=== PATIENT | female | born 1960 | race Caucasian/White ===

== ENCOUNTER 2023-07-06 09:47 | Outpatient (CLI) | payer OTHER, SELFPAY ==
--- NOTE | 2023-07-06 10:04 | MM_ITS ---
WS: [id number] BILATERAL SCREENING DIGITAL TOMOSYNTHESIS MAMMOGRAM WITH CAD HISTORY: SCREENING COMPARISON: None available. Bilateral CC and MLO views with tomosynthesis and synthetic mammography submitted. Computer aided det ection analyzed. Breast composition: The breasts are almost entirely fatty. No suspicious masses, microcalcifications or architectural distortion. IMPRESSION: MM/[place] [id number] BI-RADS: 1-Negative FOLLOW UP: 1 Year Follow-up
== END 2023-07-06 09:48 | disposition home or self-care (01) ==
LOC: RAD 09:53
PROVIDERS: PCP Nurse Practitioner; Visit Provider Nurse Practitioner
DX: Z12.31 Encounter for screening mammogram for malignant neoplasm of breast (principal)
CPT/HCPCS: 77063; 77067

== ENCOUNTER → 2023-09-28 08:41 | Outpatient (BNVA) | payer OTHER, SELFPAY | PROVIDERS: PCP Nurse Practitioner; Visit Provider Family Medicine Adult Medicine | DX: Z56.6 Other physical and mental strain related to work (principal); I10 Essential (primary) hypertension; E78.5 Hyperlipidemia, unspecified | CPT/HCPCS: 80053; 80061; 84443; 85025 ==

== ENCOUNTER 2024-08-21 07:26 | Outpatient (CLI) | payer OTHER, SELFPAY ==
--- NOTE | 2024-08-21 07:34 | MM_ITS ---
WS: [id number] BILATERAL SCREENING DIGITAL TOMOSYNTHESIS MAMMOGRAM WITH CAD HISTORY: SCREENING COMPARISON: 07/06/2023 Bilateral CC and MLO views with tomosynthesis and synthetic mammography submitted. Computer aided det ection analyzed. Breast composition: The breasts are almost entirely fatty. No suspicious masses, microcalcifications or architectural distortion. Bilateral intramammary lymph nodes. MM/MM scr BI tomosynthesis [id number] IMPRESSION: BI-RADS: 2 - Benign. FOLLOW UP: 1 Year Follow-up
== END 2024-08-21 07:27 | disposition home or self-care (01) ==
PROVIDERS: PCP Family Medicine Adult Medicine; Visit Provider Family Medicine Adult Medicine
DX: Z12.31 Encounter for screening mammogram for malignant neoplasm of breast (principal); R92.313 Mammographic fatty tissue density, bilateral breasts
CPT/HCPCS: 77063; 77067

== ENCOUNTER → 2024-12-17 07:42 | Outpatient (BNVA) | payer BC, SELFPAY | PROVIDERS: PCP Family Medicine; Visit Provider Family Medicine | DX: Z00.00 Encounter for general adult medical examination without abnormal findings (principal) | CPT/HCPCS: 80053; 80061; 84443; 85025 ==

== ENCOUNTER → 2025-05-10 10:19 | Outpatient (BNVA) | payer OTHER, SELFPAY | PROVIDERS: PCP Family Medicine; Visit Provider Emergency Medicine | DX: R39.9 Unspecified symptoms and signs involving the genitourinary system (principal) | CPT/HCPCS: 81000 ==

== ENCOUNTER 2025-05-19 17:07 | Emergency (ER) | payer OTHER, SELFPAY ==
[2025-05-19 17:15] VITALS: BP 157/100; PULSE 68; RESP 16; TEMP 36.3; O2SAT 97
--- NOTE | 2025-05-19 17:18 | ECG_ITS ---
[facility] Date: 2025-05-19 Pat Name: Emma Mccloud Department: Room: Gender: Female Night Custodian: : 1960 Requested By: Ran Mclean Order Number: [id number] Rip MD: Deborah Mueller M.D. Measurements Intervals [place] Rate: 70 P: 47 [place]: 168 QRS: -7 QRSD: 81 T: 53 QT: 381 QTc: 413 Interpretive Statements SINUS RHYTHM POSSIBLE LEFT ATRIAL ENLARGEMENT [-0.1mV P-WAVE IN V1/V2] No previous ECG available for comparison Electronically Signed On 05-19-2025 22:57:13 CDT by Deborah Mueller M.D. [email or web address]
--- NOTE | 2025-05-19 17:26 | XRR_ITS ---
PROCEDURE INFORMATION: Exam: XR Chest Exam date and time: 05/19/2025 5:29 PM Age: 65 years old Clinical indication: Shortness of breath; Additional info: Dyspnea/cough TECHNIQUE: Imaging protocol: Radiologic exam of the chest. Views: 1 view. COMPARISON: No relevant prior studies available. FINDINGS: Lungs: Small amount of left lower lung atelectasis. No pulmonary infiltrates. Pleural spaces: The pleural spaces are clear. Heart/Mediastinum: The cardiac silhouette is mildly enlarged. Mediastinal size is normal. Bones/joints: Unremarkable. XR/XR chest 1V portable [id number] IMPRESSION: 1. No acute disease in the chest. 2. Borderline cardiomegaly.
[2025-05-19 18:02] LABS: Hematocrit 46.7 % (36-47); Hemoglobin 15.20 g/dL (11.27-16.99); Mean Corpuscular HGB Conc 32.5 g/dL (30-55); Mean Corpuscular Hemoglobin 29.1 pg (27-33); Mean Corpuscular Volume 89.5 fl (85-98); Nucleated Red Blood Cells % 0 %; Platelet Count 308 10^3/cmm (157-399); Red Blood Count 5.22 10^6/uL (3.85-5.65); White Blood Count 7.34 10^3/uL (3.29-11.43)
[2025-05-19 18:04] LABS: ABG PCO2 33.4 mmHg (35-45); ABG PH Result 7.44 (7.35-7.45); Alveolar-Arterial Oxygen Gradi 4.8 mmHg (5-10); Arterial Blood Gas Hematocrit 48.5 % (37-47); Blood Gas Operator Identificat GD; Blood Gas Sample Site Brachial, right; Blood Gas Sample Type Arterial; Carboxyhemoglobin 0.2 %THgb (0.4-20.1); Glucose Level-ABG 100.0 mg/dL (70-115); HCO3 ABG 22.7 mmol/L (22-26); Ionized Calcium Level - ABG 1.3 mmol/L (1.1-1.4); Methemoglobin 0.0 % (0.4-1.5); Oxygen Saturation ABG 94.0; PO2 ABG 71.5 mmHg (80.0-100.0); PO2 FiO2 Ratio Arterial Blood 340; Potassium Level - ABG 4.0 mmol/L (3.5-5.0); Sodium Level - ABG 142.0 mmol/L (131-143)
--- NOTE | 2025-05-19 18:16 | CTR_ITS ---
PROCEDURE INFORMATION: Exam: CTA Chest With Contrast Exam date and time: 05/19/2025 8:05 PM Age: 65 years old Clinical indication: Shortness of breath; Additional info: Dyspnea on exertion TECHNIQUE: Imaging protocol: Computed tomographic angiography of the chest with contrast. Exam focused on the arteries. 3D rendering (Not supervised by radiologist): MIP and/or 3D reconstructed images were created by the technologist. Radiation optimization: All CT scans at this facility use at least one of these dose optimization techniques: automated exposure control; mA and/or kV adjustment per patient size (includes targeted exams where dose is matched to clinical indication); or iterative reconstruction. Contrast material: OMNIPAQUE 350; Contrast volume: 100 ml; Contrast route: INTRAVENOUS (IV); COMPARISON: CR (CHEST, ) 05/19/2025 5:29 PM RADIATION DOSE METRICS: Total DLP (mGy-cm): 454.91 FINDINGS: Pulmonary arteries: There are bilateral segmental and subsegmental pulmonary emboli with lobar emboli on the right. There is a thin saddle embolus. Large clot burden. Aorta: There is mild aortic atherosclerotic disease. Lungs: There is no consolidation. There is a noncalcified pulmonary nodule in the left lower lobe visible on series 7, image 268 measuring 3 mm. Pleural spaces: There is no pleural effusion or pneumothorax. Heart: Heart size is normal. There is no pericardial effusion. Heart RV/LV ratio: 1.0 Lymph nodes: There is no mediastinal or hilar lymphadenopathy. Liver: There is diffuse low-attenuation of the liver relative to the spleen consistent with fatty infiltration. Bones/joints: Bones are unremarkable. Soft tissues: The extrathoracic soft tissues are unremarkable. CT/CT angio chest PE protcl [id number] IMPRESSION: 1. Bilateral pulmonary embolism. Large clot burden. Saddle embolism is present. No sign of right ventricular strain. 2. Hepatic steatosis. 3. 3 mm left lower lobe pulmonary nodule. For patients at low risk (minimal or absent history of smoking and of other known risk factors), no routine follow-up is indicated. For patients at high risk (history of smoking or of other known risk factors), consider optional CT Chest at 12 months. (Reference: Agapito) REFERENCES: Agapito Hernandez et al. Guidelines for Management of Incidental Pulmonary Nodules Detected on CT Images: From the Fleischner Society 2017. Radiology. 2017;284(1):228-243.
--- NOTE | 2025-05-19 18:16 | W.ED.SOB ---
Documented by User: Ran Ham, 05/20/25 05:44 HPI - SOB/Dyspnea General: Chief Complaint: Shortness of Breath/Dyspnea Stated Complaint: SOB Time Seen by Provider: 05/19/25 17:25 History of Present Illness: HPI Narrative: 62-year-old female presents emergency room complaining of shortness of breath. Patient has been short of breath for the last 2 weeks. She reports on April 16 she started a GLP-1. Shortly after that she began having shortness of breath she has gotten the point where she cannot walk more than 20 feet without getting uncomfortably short of breath. She has not had any orthopnea no hemoptysis. She was recently treated for a bladder infection has not had any productive cough or wheezing. No history of DVT or PE there is no accompanying chest pain diaphoresis or nausea. Associated symptoms: Deny abdominal pain, chest congestion, chest pain or fever(s) Related Data Home Medications ?Medication ?Instructions ?Recorded ?Confirmed magnesium 250 mg tablet 250 mg PO DAILY 09/28/23 05/10/25 melatonin 3 mg capsule 3 mg PO DAILY 09/28/23 05/10/25 Previous Rx's ?Medication ?Instructions ?Recorded cetirizine 10 mg tablet (All Day 10 mg PO DAILY PRN allergy 09/29/23 Allergy (cetirizine)) symptoms #90 tabs Miguel's wort 300 mg capsule 300 mg PO BID mental health #60 10/26/23 caps cyclobenzaprine 5 mg tablet 5 mg PO TID PRN muscle spasm #20 08/12/24 tabs losartan 50 mg tablet 50 mg PO DAILY high blood pressure 11/14/24 #90 tabs pantoprazole 20 mg tablet,delayed 20 mg PO DAILY acid reflux #90 tabs 11/14/24 release ezetimibe 10 mg tablet 10 mg PO DAILY #90 tabs 12/17/24 fenofibrate nanocrystallized 145 145 mg PO DAILY triglycerides #90 12/18/24 mg tablet tabs liraglutide 0.6 mg/0.1 mL (18 mg/3 See Rx Instructions SUBCUT 04/10/25 mL) subcutaneous pen injector .COMPLEX #9 mL nitrofurantoin 100 mg PO BID 5 days #10 caps 05/10/25 monohydrate/macrocrystals 100 mg capsule (Macrobid) phenazopyridine 200 mg tablet 200 mg PO Q8H PRN pain 9 doses #9 05/10/25 (Pyridium) tabs Allergies Allergy/AdvReac Type Severity Reaction Status Date / Time cephalexin (From Keflex) Allergy ALGY-Rash Verified 05/10/25 10:12 Rwgetow-URO-JcD Reductase Allergy rash Verified 05/10/25 10:12 Inhibitor Review of Systems Const: Denies: fever(s) or chills Card: Denies: chest pain Resp: Reports: dyspnea; Denies: productive cough, non-productive cough, wheezing or chest congestion GI: Denies: abdominal pain : Denies: dysuria, urinary frequency or urinary urgency Musc: Denies: neck pain or back pain Skin/Breast: Denies: rash PFSH ED PFSH: Medical History Statin intolerance has tried 2 statins--myalgias; was Rxed one more but was too expensive Right ACL tear Thoracic radiculopathy Chronic radicular cervical pain Chronic chest wall pain Allergic rhinitis due to allergen Hyperlipidemia with low HDL CKD (chronic kidney disease), stage II 09/28/2023 creatinine of 0.9 with GFR of 64 Former smoker BMI 40.0-44.9, adult GERD (gastroesophageal reflux disease) Stressful workplace Hypertension Arthritis Headache Surgical History Hx of knee surgery bilateral patellar release Hx of section X 2 S/P History of cholecystectomy Hx of hysterectomy w/ BSO for fibroids Family History Father SunDown syndrome Emphysema lung Mother Ovarian cancer Grandmother Cancer Grandfather Heart attack Grandmother Breast cancer Social History Smoking and tobacco/nicotine status: former use of tobacco/nicotine Quit status (tobacco/nicotine): has quit using Year quit tobacco: 2001 Alcohol intake: never Substance/Drug Use: never Household members: spouse Marital status: Number of children: 2 Highest education level completed: Associate Degree: Occupational, Technical, Vocational Program Current occupational status: employed Current occupation: [employer] Work[employer] Physical Exam Const: COMMON NORMALS: no acute distress GENERAL APPEARANCE: cooperative and comfortable ORIENTATION/CONSCIOUSNESS: Yes awake, Yes oriented to person, Yes oriented to place and Yes oriented to time HENMT: COMMON NORMALS: normocephalic, atraumatic and hearing grossly normal bilaterally HEAD & SCALP: normocephalic and atraumatic Resp: COMMON NORMALS: normal respiratory effort, No retractions, No use of accessory muscles and clear to auscultation bilaterally AUSCULTATION: clear to auscultation bilaterally Cardio: COMMON NORMALS: regular rate, regular rhythm and No murmurs present (Cardio) RATE: regular rate RHYTHM: regular rhythm GI: COMMON NORMALS: Soft to palpation and No hepatosplenomegaly present AUSCULTATION: Yes normoactive bowel sounds PALPATION: Yes Soft to palpation, No Tenderness to palpation present (GI), No Guarding due to palpation present (GI) and Yes No hepatosplenomegaly present Extremity: COMMON NORMALS: normal to inspection, capillary refill normal, no clubbing, cyanosis or edema, no calf tenderness and no pedal edema Neuro: SENSORIUM/ORIENTATION: Yes oriented to person, Yes oriented to place and Yes oriented to time Skin: COMMON NORMALS: no rashes or lesions noted GENERAL SKIN EXAM: no rashes or lesions noted Course Vital Signs: Vital signs: Vital Signs Temperature 97.4 F L 05/19/25 17:15 Pulse Rate 82 05/19/25 23:07 Respiratory Rate 14 05/19/25 21:36 Blood Pressure 176/94 05/19/25 23:07 Pulse Oximetry 95 05/19/25 23:07 Oxygen Delivery Me thod Room Air 05/19/25 21:36 MDM - SOB/Dyspnea Medical Decision Making Care signed out to Dr. Weiner at change of shift. See final notes for diagnosis and disposition. Signout from Dr. Ham at 8 PM. Patient here with new onset dyspnea on exertion awaiting CT scan with concern for pulmonary embolism. On reassessment I talked with the patient about her test results. Her CT is concerning for bilateral pulmonary emboli with large clot burden. Positive saddle embolism. No right ventricular strain. Will start her on heparin bolus and drip. I spoke with Dr. Groves at [facility] and we will transfer the patient there for further evaluation possible intervention for her large clot burden. Medical Records I reviewed the patient's medical records. Lab Data I reviewed the patient's lab results. 05/19/25 17:51 05/19/25 17:51 Labs/Radiology: Radiology Impressions Chest X-Ray 05/19/25 17:26 IMPRESSION: 1. No acute disease in the chest. 2. Borderline cardiomegaly. Chest CTA 05/19/25 18:16 IMPRESSION: 1. Bilateral pulmonary embolism. Large clot burden. Saddle embolism is present. No sign of right ventricular strain. 2. Hepatic steatosis. 3. 3 mm left lower lobe pulmonary nodule. For patients at low risk (minimal or absent history of smoking and of other known risk factors), no routine follow-up is indicated. For patients at high risk (history of smoking or of other known risk factors), consider optional CT Chest at 12 months. (Reference: Agapito) REFERENCES: Agapito Hernandez, et al. Guidelines for Management of Incidental Pulmonary Nodules Detected on CT Images: From the Fleischner Society 2017. Radiology. 2017;284(1):228-243. ADDENDUM: 05/19/252036 THIS REPORT CONTAINS FINDINGS THAT MAY BE CRITICAL TO PATIENT CARE. The findings and recommendations were personally verbally communicated via telephone conference with RAN HAM at 8:35 PM CDT on 05/19/2025. The findings were acknowledged and understood. ADDENDUM: 05/19/252037 Correction:THIS REPORT CONTAINS FINDINGS THAT MAY BE CRITICAL TO PATIENT CARE. The findings and recommendations were personally verbally communicated via telephone conference with Dr. Weiner at 8:36 PM CDT on 05/19/2025. The findings were acknowledged and understood. Laboratory Results WBC 7.34 10^3/uL (3.29-11.43) 05/19/25 17:51 RBC 5.22 10^6/uL (3.85-5.65) 05/19/25 17:51 Hgb 15.20 g/dL (11.27-16.99) 05/19/25 17:51 Hct 46.7 % (36-47) 05/19/25 17:51 MCV 89.5 fl (85-98) 05/19/25 17:51 MCH 29.1 pg (27-33) 05/19/25 17: MCHC 32.5 g/dL (30-55) 05/19/25 17:51 RDW 12.1 % (12.1-15.1) 05/19/25 17:51 Plt Count 308 10^3/cmm (157-399) 05/19/25 17:51 MPV 9.7 fL (7.4-10.4) 05/19/25 17:51 Neut % (Auto) 47.5 % 05/19/25 17:51 Lymph % (Auto) 39.5 % 05/19/25 17:51 Prentiss % (Auto) 9.8 % 05/19/25 17:51 Eos % (Auto) 2.2 % 05/19/25 17:51 Baso % (Auto) 0.7 % 05/19/25 17:51 Neut # (Auto) 3.49 10^3/uL (1.8-7.7) 05/19/25 17:51 Lymph # (Auto) 2.9 10^3/uL (0.8-4.8) 05/19/25 17:51 Prentiss # (Auto) 0.7 10^3/uL (0.2-0.9) 05/19/25 17:51 Eos # (Auto) 0.2 10^3/uL (0.0-0.8) 05/19/25 17:51 Baso # (Auto) 0.1 10^3/uL (0.0-0.1) 05/19/25 17:51 Nucleated RBC % (auto) 0 % 05/19/25 17:51 Nucleated RBCs # 0.0 /100WBC 05/19/25 17:51 Specimen Type Arterial 05/19/25 17:48 Sample Site Brachial, right 05/19/25 17:48 ABG pH 7.44 (7.35-7.45) 05/19/25 17:48 ABG pCO2 33.4 mmHg (35-45) L 05/19/25 17:48 ABG pO2 71.5 mmHg (80.0-100.0) L 05/19/25 17:48 ABG PO2/FiO2 Ratio 340 05/19/25 17:48 ABG HCO3 22.7 mmol/L (22-26) 05/19/25 17:48 ABG O2 Saturation 94.0 05/19/25 17:48 ABG Base Excess -0.7 mmol/L (-2.0-2.0) 05/19/25 17:48 Robbi Test N/a 05/19/25 17:48 A-a O2 Gradient 4.8 mmHg (5-10) L 05/19/25 17:48 Hematocrit 48.5 % (37-47) H 05/19/25 17:48 Hgb O2 Saturation 93.8 % (95-100) L 05/19/25 17:48 Carboxyhemoglobin 0.2 %THgb (0.4-20.1) L 05/19/25 17:48 Methemoglobin 0.0 % (0.4-1.5) L 05/19/25 17:48 Total Hemoglobin 15.8 g/dL (12-16) 05/19/25 17:48 Sodium 142.0 mmol/L (131-143) 05/19/25 17:48 Potassium 4.0 mmol/L (3.5-5.0) 05/19/25 17:48 Glucose 100.0 mg/dL (70-115) 05/19/25 17:48 Ionized Calcium 1.3 mmol/L (1.1-1.4) 05/19/25 17:48 O2 Delivery Device Room air 05/19/25 17:48 FiO2 21.0 % 05/19/25 17:48 [employer] Machine Operator ID [id number] 05/19/25 17:48 Sodium 142 mmol/L (136-145) 05/19/25 17:51 Potassium 3.9 mmol/L (3.5-5.1) 05/19/25 17:51 Chloride 106 mmol/L (98-107) 05/19/25 17:51 Carbon Dioxide 17 mmol/L (22-29) L 05/19/25 17:51 Anion Gap 22.9 (5-19) H 05/19/25 17:51 BUN 22 mg/dL (8-23) 05/19/25 17:51 Creatinine 1.2 mg/dL (0.5-0.9) H 05/19/25 17:51 GFR Calculation 45.4 mL/min (90-130) L 05/19/25 17:51 Glucose 90 mg/dL (65-115) 05/19/25 17:51 Calculated Osmolality 297 mOsm/kg (285-295) H 05/19/25 17:51 Calcium 10.1 mg/dL (8.5-10.5) 05/19/25 17:51 Total Bilirubin 0.4 mg/dL (0.15-1.2) 05/19/25 17:51 AST 19 U/L (0-32) 05/19/25 17:51 ALT 28 U/L (0-33) 05/19/25 17:51 Alkaline Phosphatase 56 U/L (35-105) 05/19/25 17:51 Troponin T Baseline 8 ng/L (0-10) 05/19/25 18:32 Troponin T 120 Minute 7.85 ng/L (0-10) 05/19/25 20:20 Delta Troponin T -0.15 ABS# (0-10) L 05/19/25 20:20 NT-Pro-B Natriuret Pep 356 pg/mL (0-125) H 05/19/25 17:51 Total Protein 7.0 g/dL (6.6-8.7) 05/19/25 17:51 Albumin 4.3 g/dL (3.5-5.2) 05/19/25 17:51 Globulin 2.7 g/dL (1.3-4.6) 05/19/25 17:51 Procalcitonin 0.07 ng/mL (0-0.5) 05/19/25 17:51 Urine Color Yellow (Yellow) 05/19/25 18:13 Urine Appearance Clear (CLEAR) 05/19/25 18:13 Urine pH 6.0 (5-7) 05/19/25 18:13 Ur Specific [place] 1.009 (1.005-1.030) 05/19/25 18:13 Urine Protein Negative (Negative) 05/19/25 18:13 Urine Glucose (UA) Negative (Normal) 05/19/25 18:13 Urine Ketones Negative (Negative) 05/19/25 18:13 Urine Blood Negative (Negative) 05/19/25 18:13 Urine Nitrate Negative (Negative) 05/19/25 18:13 Urine Bilirubin Negative (Negative) 05/19/25 18:13 Urine Urobilinogen 0.2 mg/dL (Negative) 05/19/25 18:13 Ur Leukocyte Esterase Negative (Negative) 05/19/25 18:13 Urine RBC 0-2 /hpf (0-2) 05/19/25 18:13 Urine WBC 0-5 /hpf (0-5) 05/19/25 18:13 Ur Squamous Epith Cells 0-5 /hpf (0-5) 05/19/25 18:13 Amorphous Sediment Not Reportable 05/19/25 18:13 Urine Bacteria Trace /hpf (NONE) 05/19/25 18:13 Hyaline Casts 0.40 /lpf 05/19/25 18:13 Influenza A (PCR) Negative (Negative) 05/19/25 18:02 Influenza Type B (PCR) Negative (Negative) 05/19/25 18:02 RSV (PCR) Negative (Negative) 05/19/25 18:02 SARS-CoV-2 (PCR) Negative (Negative) 05/19/25 18:02 Discharge Plan Discharge Patient Disposition: Xfer Short-Term Hosp Clinical Impression: Pulmonary embolism Condition: Stable Referrals: Christine French MD [Primary Care Provider, [facility]] Print Language: Nicaraguan Coding Level of Care Code ED Edge Runner for [facility]g Fwd Documented by User: Mark Weiner MD 05/19/25 21:13 HPI - SOB/Dyspnea General: Chief Complaint: Shortness of Breath/Dyspnea Stated Complaint: SOB Time Seen by Provider: 05/19/25 17:25 Related Data Home Medications ?Medication ?Instructions ?Recorded ?Confirmed magnesium 250 mg tablet 250 mg PO DAILY 09/28/23 05/10/25 melatonin 3 mg capsule 3 mg PO DAILY 09/28/23 05/10/25 Previous Rx's ?Medication ?Instructions ?Recorded cetirizine 10 mg tablet (All Day 10 mg PO DAILY PRN allergy 09/29/23 Allergy (cetirizine)) symptoms #90 tabs Miguel's wort 300 mg capsule 300 mg PO BID mental health #60 10/26/23 caps cyclobenzaprine 5 mg tablet 5 mg PO TID PRN muscle spasm #20 08/12/24 tabs losartan 50 mg tablet 50 mg PO DAILY high blood pressure 11/14/24 #90 tabs pantoprazole 20 mg tablet,delayed 20 mg PO DAILY acid reflux #90 tabs 11/14/24 release ezetimibe 10 mg tablet 10 mg PO DAILY #90 tabs 12/17/24 fenofibrate nanocrystallized 145 145 mg PO DAILY triglycerides #90 12/18/24 mg tablet tabs liraglutide 0.6 mg/0.1 mL (18 mg/3 See Rx Instructions SUBCUT 04/10/25 mL) subcutaneous pen injector .COMPLEX #9 mL nitrofurantoin 100 mg PO BID 5 days #10 caps 05/10/25 monohydrate/macrocrystals 100 mg capsule (Macrobid) phenazopyridine 200 mg tablet 200 mg PO Q8H PRN pain 9 doses #9 05/10/25 (Pyridium) tabs Allergies Allergy/AdvReac Type Severity Reaction Status Date / Time cephalexin (From Keflex) Allergy ALGY-Rash Verified 05/10/25 10:12 Eoqqvle-PWH-WiY Reductase Allergy rash Verified 05/10/25 10:12 Inhibitor PFS ED PFSH: Medical History Statin intolerance has tried 2 statins--myalgias; was Rxed one more but was too expensive Right ACL tear Thoracic radiculopathy Chronic radicular cervical pain Chronic chest wall pain Allergic rhinitis due to allergen Hyperlipidemia with low HDL CKD (chronic kidney disease), stage II 09/28/2023 creatinine of 0.9 with GFR of 64 Former smoker BMI 40.0-44.9, adult GERD (gastroesophageal reflux disease) Stressful workplace Hypertension Arthritis Headache Surgical History Hx of knee surgery bilateral patellar release Hx of section X 2 S/P History of cholecystectomy Hx of hysterectomy w/ BSO for fibroids Family History Father SunDown syndrome Emphysema lung Mother Ovarian cancer Grandmother Cancer Grandfather Heart attack Grandmother Breast cancer Social History Smoking and tobacco/nicotine status: former use of tobacco/nicotine Quit status (tobacco/nicotine): has quit using Year quit tobacco: 2001 Alcohol intake: never Substance/Drug Use: never Household members: spouse Marital status: Number of children: 2 Highest education level completed: Associate Degree: Occupational, Technical, Vocational Program Current occupational status: employed 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 Ham at 8 PM. Patient here with new onset dyspnea on exertion awaiting CT scan with concern for pulmonary embolism. On reassessment I talked with the patient about her test results. Her CT is concerning for bilateral pulmonary emboli with large clot burden. Positive saddle embolism. No right ventricular strain. Will start her on heparin bolus and drip. I spoke with Dr. Groves at [facility] and we will transfer the patient there for further evaluation possible intervention for her large clot burden. Lab Data 05/19/25 17:51 05/19/25 17:51 Labs/Radiology: Radiology Impressions Chest X-Ray 05/19/25 17:26 IMPRESSION: 1. No acute disease in the chest. 2. Borderline cardiomegaly. Chest CTA 05/19/25 18:16 IMPRESSION: 1. Bilateral pulmonary embolism. Large clot burden. Saddle embolism is present. No sign of right ventricular strain. 2. Hepatic steatosis. 3. 3 mm left lower lobe pulmonary nodule. For patients at low risk (minimal or absent history of smoking and of other known risk factors), no routine follow-up is indicated. For patients at high risk (history of smoking or of other known risk factors), consider optional CT Chest at 12 months. (Reference: Agapito) REFERENCES: Agapito Hernandez et al. Guidelines for Management of Incidental Pulmonary Nodules Detected on CT Images: From the Fleischner Society 2017. Radiology. 2017;284(1):228-243. ADDENDUM: 05/19/252036 THIS REPORT CONTAINS FINDINGS THAT MAY BE CRITICAL TO PATIENT CARE. The findings and recommendations were personally verbally communicated via telephone conference with RAN HAM at 8:35 PM CDT on 05/19/2025. The findings were acknowledged and understood. ADDENDUM: 05/19/252037 Correction:THIS REPORT CONTAINS FINDINGS THAT MAY BE CRITICAL TO PATIENT CARE. The findings and recommendations were personally verbally communicated via telephone conference with Dr. Weiner at 8:36 PM CDT on 05/19/2025. The findings were acknowledged and understood. Laboratory Results WBC 7.34 10^3/uL (3.29-11.43) 05/19/25 17:51 RBC 5.22 10^6/uL (3.85-5.65) 05/19/25 17:51 Hgb 15.20 g/dL (11.27-16.99) 05/19/25 17:51 Hct 46.7 % (36-47) 05/19/25 17:51 MCV 89.5 fl (85-98) 05/19/25 17:51 MCH 29.1 pg (27-33) 05/19/25 17:51 MCHC 32.5 g/dL (30-55) 05/19/25 17:51 RDW 12.1 % (12.1-15.1) 05/19/25 17:51 Plt Count 308 10^3/cmm (157-399) 05/19/25 17:51 MPV 9.7 fL (7.4-10.4) 05/19/25 17:51 Neut % (Auto) 47.5 % 05/19/25 17:51 Lymph % (Auto) 39.5 % 05/19/25 17:51 Prentiss % (Auto) 9.8 % 05/19/25 17:51 Eos % (Auto) 2.2 % 05/19/25 17:51 Baso % (Auto) 0.7 % 05/19/25 17:51 Neut # (Auto) 3.49 10^3/uL (1.8-7.7) 05/19/25 17:51 Lymph # (Auto) 2.9 10^3/uL (0.8-4.8) 05/19/25 17:51 Prentiss # (Auto) 0.7 10^3/uL (0.2-0.9) 05/19/25 17:51 Eos # (Auto) 0.2 10^3/uL (0.0-0.8) 05/19/25 17:51 Baso # (Auto) 0.1 10^3/uL (0.0-0.1) 05/19/25 17:51 Nucleated RBC % (auto) 0 % 05/19/25 17:51 Nucleated RBCs # 0.0 /100WBC 05/19/25 17:51 Specimen Type Arterial 05/19/25 17:48 Sample Site Brachial, right 05/19/25 17:48 ABG pH 7.44 (7.35-7.45) 05/19/25 17:48 ABG pCO2 33.4 mmHg (35-45) L 05/19/25 17:48 ABG pO2 71.5 mmHg (80.0-100.0) L 05/19/25 17:48 ABG PO2/FiO2 Ratio 340 05/19/25 17:48 ABG HCO3 22.7 mmol/L (22-26) 05/19/25 17:48 ABG O2 Saturation 94.0 05/19/25 17:48 ABG Base Excess -0.7 mmol/L (-2.0-2.0) 05/19/25 17:48 Robbi Test N/a 05/19/25 17:48 A-a O2 Gradient 4.8 mmHg (5-10) L 05/19/25 17:48 Hematocrit 48.5 % (37-47) H 05/19/25 17:48 Hgb O2 Saturation 93.8 % (95-100) L 05/19/25 17:48 Carboxyhemoglobin 0.2 %THgb (0.4-20.1) L 05/19/25 17:48 Methemoglobin 0.0 % (0.4-1.5) L 05/19/25 17:48 Total Hemoglobin 15.8 g/dL (12-16) 05/19/25 17:48 Sodium 142.0 mmol/L (131-143) 05/19/25 17:48 Potassium 4.0 mmol/L (3.5-5.0) 05/19/25 17:48 Glucose 100.0 mg/dL (70-115) 05/19/25 17:48 Ionized Calcium 1.3 mmol/L (1.1-1.4) 05/19/25 17:48 O2 Delivery Device Room air 05/19/25 17:48 FiO2 21.0 % 05/19/25 17:48 Sweet Goods Machine Operator ID Gd 05/19/25 17:48 Sodium 142 mmol/L (136-145) 05/19/25 17:51 Potassium 3.9 mmol/L (3.5-5.1) 05/19/25 17:51 Chloride 106 mmol/L (98-107) 05/19/25 17:51 Carbon Dioxide 17 mmol/L (22-29) L 05/19/25 17:51 Anion Gap 22.9 (5-19) H 05/19/25 17:51 BUN 22 mg/dL (8-23) 05/19/25 17:51 Creatinine 1.2 mg/dL (0.5-0.9) H 05/19/25 17:51 GFR Calculation 45.4 mL/min (90-130) L 05/19/25 17:51 Glucose 90 mg/dL (65-115) 05/19/25 17:51 Calculated Osmolality 297 mOsm/kg (285-295) H 05/19/25 17:51 Calcium 10.1 mg/dL (8.5-10.5) 05/19/25 17:51 Total Bilirubin 0.4 mg/dL (0.15-1.2) 05/19/25 17:51 AST 19 U/L (0-32) 05/19/25 17:51 ALT 28 U/L (0-33) 05/19/25 17:51 Alkaline Phosphatase 56 U/L (35-105) 05/19/25 17:51 Troponin T Baseline 8 ng/L (0-10) 05/19/25 18:32 Troponin T 120 Minute 7.85 ng/L (0-10) 05/19/25 20:20 Delta Troponin T -0.15 ABS# (0-10) L 05/19/25 20:20 NT-Pro-B Natriuret Pep 356 pg/mL (0-125) H 05/19/25 17:51 Total Protein 7.0 g/dL (6.6-8.7) 05/19/25 17:51 Albumin 4.3 g/dL (3.5-5.2) 05/19/25 17:51 Globulin 2.7 g/dL (1.3-4.6) 05/19/25 17:51 Procalcitonin 0.07 ng/mL (0-0.5) 05/19/25 17:51 Urine Color Yellow (Yellow) 05/19/25 18:13 Urine Appearance Clear (CLEAR) 05/19/25 18:13 Urine pH 6.0 (5-7) 05/19/25 18:13 Ur Specific [place] 1.009 (1.005-1.030) 05/19/25 18:13 Urine Protein Negative (Negative) 05/19/25 18:13 Urine Glucose (UA) Negative (Normal) 05/19/25 18:13 Urine Ketones Negative (Negative) 05/19/25 18:13 Urine Blood Negative (Negative) 05/19/25 18:13 Urine Nitrate Negative (Negative) 05/19/25 18:13 Urine Bilirubin Negative (Negative) 05/19/25 18:13 Urine Urobilinogen 0.2 mg/dL (Negative) 05/19/25 18:13 Ur Leukocyte Esterase Negative (Negative) 05/19/25 18:13 Urine RBC 0-2 /hpf (0-2) 05/19/25 18:13 Urine WBC 0-5 /hpf (0-5) 05/19/25 18:13 Ur Squamous Epith Cells 0-5 /hpf (0-5) 05/19/25 18:13 Amorphous Sediment Not Reportable 05/19/25 18:13 Urine Bacteria Trace /hpf (NONE) 05/19/25 18:13 Hyaline Casts 0.40 /lpf 05/19/25 18:13 Influenza A (PCR) Negative (Negative) 05/19/25 18:02 Influenza Type B (PCR) Negative (Negative) 05/19/25 18:02 RSV (PCR) Negative (Negative) 05/19/25 18:02 SARS-CoV-2 (PCR) Negative (Negative) 05/19/25 18:02 All radiology interpretation(s) finalized by discharge Discharge Plan Discharge Patient Disposition: Xfer Short-Term Hosp Clinical Impression: Pulmonary embolism Condition: Stable Referrals: Christine French MD [Primary Care Provider, [facility]] Print Language: Nicaraguan Coding Level of Care Code ED Edge Runner for [facility] Moisés
--- NOTE | 2025-05-19 18:17 | ECG_ITS ---
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 Measurements Intervals [place] Rate: 74 P: 56 SC: 169 QRS: 0 QRSD: 74 T: 66 QT: 362 QTc: 403 Interpretive Statements SINUS RHYTHM POSSIBLE LEFT ATRIAL ENLARGEMENT [-0.1mV P-WAVE IN V1/V2] NONSPECIFIC T-WAVE ABNORMALITY Compared to ECG 05/19/2025 17:18:13 T-wave abnormality now present Electronically Signed On 05-19-2025 22:56:34 CDT by Deborah Mueller M.D. [email or web address]
[2025-05-19 18:18] VITALS: BP 167/105; PULSE 84; RESP 16; O2SAT 95
[2025-05-19 18:31] LABS: Glucose Urine UA Negative (Normal); Nitrate Urine Negative (Negative); Specific Gravity, Urine 1.009 (1.005-1.030)
[2025-05-19 18:37] LABS: Add Urine Microscopic? YES
[2025-05-19 18:46] LABS: Respiratory Syncytial Virus Ce NEGATIVE (Negative); SARS-CoV-2 PCR NEGATIVE (Negative)
[2025-05-19] MEDS: iohexol 350 mg/mL 500 mL Btl (per mL) IV (20:07)
[2025-05-19 20:08] LABS: Troponin(5th) Baseline 8 ng/L (0-10)
[2025-05-19 20:10] LABS: NT Pro B Type Natriuretic Pept 356 pg/mL (0-125); Procalcitonin 0.07 ng/mL (0-0.5)
--- NOTE | 2025-05-19 20:17 | ECG_ITS ---
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 Measurements Intervals [place] Rate: 74 P: 58 LA: 174 QRS: -11 QRSD: 80 T: 63 QT: 386 QTc: 430 Interpretive Statements SINUS RHYTHM POSSIBLE LEFT ATRIAL ENLARGEMENT [-0.1mV P-WAVE IN V1/V2] LOW QRS VOLTAGE IN PRECORDIAL LEADS [QRS DEFLECTION < 1.0 mV IN CHEST LEADS] WARNING: DATA QUALITY MAY AFFECT INTERPRETATION Compared to ECG 05/19/2025 18:21:52 Low QRS voltage now present T-wave abnormality no longer present Electronically Signed On 05-19-2025 23:05:29 CDT by Deborah Mueller M.D. [email or web address]
[2025-05-19 20:39] LABS: Alanine Aminotransferase 28 U/L (0-33); Albumin Level 4.3 g/dL (3.5-5.2); Alkaline Phosphatase 56 U/L (35-105); Anion Gap 22.9 (5-19); Aspartate Amino Transferase 19 U/L (0-32); Blood Urea Nitrogen 22 mg/dL (8-23); Calcium 10.1 mg/dL (8.5-10.5); Carbon Dioxide 17 mmol/L (22-29); Chloride 106 mmol/L (98-107); Creatinine Clr Calc Pharmacy 61.0094; Globulin 2.7 g/dL (1.3-4.6); Glucose 90 mg/dL (65-115); Osmolality Calculated 297 mOsm/kg (285-295); Potassium 3.9 mmol/L (3.5-5.1); Sodium 142 mmol/L (136-145); Total Protein 7.0 g/dL (6.6-8.7)
[2025-05-19 20:42] LABS: Troponin 5 2HR 7.85 ng/L (0-10); Troponin 5 2HR Delta -0.15 ABS# (0-10)
[2025-05-19 20:44] VITALS: BP 169/89; PULSE 81; RESP 16; O2SAT 95
--- NOTE | 2025-05-19 20:58 | PC.NURSE ---
spoke with pharmacy and verified dr. villarreal requested increased dose for Heparin bolus and drip. pharmacy verified accuracy.
[2025-05-19] MEDS: heparin 5,000 unit/mL INJ 1 mL 9500 UNIT IVP (21:10)
[2025-05-19] MEDS: heparin drip 25,000 UNIT/500 ML PREMIX 42.95 UNIT IV (21:14)
[2025-05-19 21:36] VITALS: BP 162/110; PULSE 82; RESP 14; O2SAT 96
[2025-05-19 23:07] VITALS: BP 176/94; PULSE 82; O2SAT 95
== END 2025-05-19 23:16 | disposition short-term general hospital (02) ==
PROVIDERS: Emergency Provider Family Medicine; PCP Family Medicine
DX: I26.99 Other pulmonary embolism without acute cor pulmonale (principal); Z11.52 Encounter for screening for COVID-19; E78.5 Hyperlipidemia, unspecified; I12.9 Hypertensive chronic kidney disease with stage 1 through stage 4 chronic kidney disease, or unspecified chronic kidney disease; N18.2 Chronic kidney disease, stage 2 (mild)
CPT/HCPCS: 36415; 36600; 71045; 71275; 80051; 80053; 81001; 82330; 82805; 83880; 84145; 84484; 85025; 87637; 93005; 96374; 99285; J1644

== ENCOUNTER 2025-08-28 08:57 | Outpatient (CLI) | payer OTHER, SELFPAY ==
--- NOTE | 2025-08-28 09:06 | MM_ITS ---
WS: [id number] BILATERAL SCREENING DIGITAL TOMOSYNTHESIS MAMMOGRAM WITH CAD HISTORY: SCREENING COMPARISON: None available. Bilateral CC and MLO views with tomosynthesis and synthetic mammography submitted. Computer aided detection analyzed. Breast composition: There are scattered areas of fibroglandular density. No suspicious masses, microcalcifications or architectural distortion. Benign calcifications in each breast. No suspicious groups of calcifications. Benign intramammary lymph node upper outer quadrant LEFT breast. MM/MM scr BI tomosynthesis [id number] IMPRESSION: BI-RADS: 2 - Benign. FOLLOW UP: 1 Year Follow-up
== END 2025-08-28 08:58 | disposition home or self-care (01) ==
LOC: RAD 08:58
PROVIDERS: PCP Family Medicine; Visit Provider Family Medicine
DX: Z12.31 Encounter for screening mammogram for malignant neoplasm of breast (principal); R92.323 Mammographic fibroglandular density, bilateral breasts; R92.1 Mammographic calcification found on diagnostic imaging of breast; D36.0 Benign neoplasm of lymph nodes
CPT/HCPCS: 77063; 77067